=== PATIENT | female | born 1945 | race Two or more races ===

== ENCOUNTER 2020-12-03 11:14 | Emergency (ER) | payer MEDICARE, OTHER ==
[~2020-12-03] VITALS: Ht 152.4 cm; Wt 49.9 kg
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
--- NOTE | 2020-12-03 11:32 | NUR ---
SEEN AND EXAMINED BY .
--- NOTE | 2020-12-03 11:34 | NUR ---
PT IS WHEELED TO CT SCAN VIA GUTNEY.
[2020-12-03] MEDS ORDERED: LIDOCAINE /MPF 1% VIAL 5 ML VIAL ONE (11:45)
[2020-12-03] MEDS ORDERED: TDAP [DIPH/PERTUSSIS/TET] 0.5 ML VIAL IM ONE (11:46)
[2020-12-03] MEDS: TDAP [DIPH/PERTUSSIS/TET] 0.5 ML VIAL IM ONE (11:47)
[2020-12-03] MEDS: BACI/NEOM/POLY B OINT PKT 1 UDPKT PACKET TP ONE (11:47)
[2020-12-03] MEDS: LIDOCAINE HCL/PF 1% 30 ML VIAL TP ONE (11:47)
--- NOTE | 2020-12-03 11:50 | NUR ---
PATIENT IS IN CT AT THIS TIME.
[2020-12-03] MEDS ORDERED: HYDROCODONE/APAP 5/325MG TABLET ONE (12:41)
[2020-12-03] MEDS: HYDROCODONE/APAP 5/325MG TABLET PO ONE (12:44)
[2020-12-03] MEDS ORDERED: HYDR-4303 PO (12:46)
--- NOTE | 2020-12-03 12:46 | NUR ---
SUTURES PLACED ON LEFT INDEX FINGER BY DR KU.
--- NOTE | 2020-12-03 12:51 | NUR ---
WOUND CLEANING AND DRESSING DONE BY NON DESTRUCTIVE TESTING INSPECTOR.
[2020-12-03 12:55] VITALS: BP 120/68
--- NOTE | 2020-12-03 13:37 | NUR ---
Patient discharged to home in stable condition. Written and verbal after care instructions given. Patient verbalizes understanding of instruction.
== END 2020-12-03 13:38 | disposition home or self-care (01) ==
LOC: ER 11:18
DX: S22.41XA Multiple fractures of ribs, right side, initial encounter for closed fracture (principal); S61.412A Laceration without foreign body of left hand, initial encounter; S01.81XA Laceration without foreign body of other part of head, initial encounter; S70.01XA Contusion of right hip, initial encounter; V09.9XXA Pedestrian injured in unspecified transport accident, initial encounter; Y93.89 Activity, other specified; Y92.89 Other specified places as the place of occurrence of the external cause; Y99.8 Other external cause status
CPT/HCPCS: 12001; 70450; 71250; 72192; 73130; 73552; 90471; 90715; 99285; J3490 ×2

== ENCOUNTER 2020-12-10 11:20 | Emergency (ER) | payer MEDICARE, OTHER ==
[~2020-12-10] VITALS: Ht 154.9 cm; Wt 49.9 kg
[~2020-12-10 11:20] MED LIST: HYDR-4303 PO
[2020-12-10 11:29] VITALS: BP 112/69
== END 2020-12-10 12:22 | disposition home or self-care (01) ==
LOC: ER 11:24
DX: S61.412D Laceration without foreign body of left hand, subsequent encounter (principal); Z79.899 Other long term (current) drug therapy; X58.XXXD Exposure to other specified factors, subsequent encounter